=== PATIENT | male | born 1975 ===

== ENCOUNTER 2018-09-20 16:20 | Emergency (ER) | payer OTHER ==
[2018-09-20 16:28] VITALS: RESP 18; TEMP 98.4
[2018-09-20] MEDS ORDERED: Lidocaine 2% w Epi 1:100,000 Inj IJ ONE (16:46)
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
[2018-09-20 18:44] VITALS: BP 128/78; PULSE 70
[2018-09-21 22:48] VITALS: O2SAT 98
== END 2018-09-20 18:43 | disposition home or self-care (01) ==
LOC: H.ER 16:20
DX: M54.5 Low back pain (principal); V03.10XA Pedestrian on foot injured in collision with car, pick-up truck or van in traffic accident, initial encounter; Y92.410 Unspecified street and highway as the place of occurrence of the external cause
CPT/HCPCS: 72131; 96372; 99282; J1885